=== PATIENT | female | born 1970 | race Caucasian/White ===

== ENCOUNTER → 2018-02-13 | Day surgery (SDC) | payer OTHER | END | disposition home or self-care (01) | LOC: FIMAGING 13:19 | PROVIDERS: ATTEND Internal Medicine | PROC: 02HV33Z Insertion of Infusion Device into Superior Vena Cava, Percutaneous Approach (ICD-10-PCS; principal; 2018-02-13) | DX: M86.60 Other chronic osteomyelitis, unspecified site (principal) | CPT/HCPCS: 36569; 76937; 77001; C1751 ==

== ENCOUNTER 2018-03-30 18:03 | Emergency (ER) | payer OTHER ==
[2018-03-30 18:11] VITALS: BP 106/53
[2018-03-30] MEDS ORDERED: ALTEPLASE 2 MG VIAL IVP PRN (18:46)
--- NOTE | 2018-03-30 18:56 | EDPHY ---
General Time Seen by Provider: 03/30/18 18:26 Narrative: CHIEF COMPLAINT: DVT, told to come to the hospital HISTORY OF PRESENT ILLNESS: Patient presents to emergency department by private vehicle with complaints of a blood clot in her arm where she has a PICC line. She reports that she was told to come here to have it removed. She has no symptoms of any kind associated with this. She was at her primary care physician office and they ordered a routine, screening ultrasound because she has had the PICC in place for 6 weeks. She has had no redness, swelling, pain. No chest pain or shortness of breath or difficulty breathing. Ultrasound was reportedly positive with a DVT in the basilic vein, and she was sent here to have a discontinued. She has the PICC line since February 13 for ongoing antibiotic in registration for mandibular osteomyelitis and chronic Lyme disease. She has no symptoms at this time. No other associated complaints or modifying factors. No anticoagulation use. REVIEW OF SYSTEMS: 10 systems were reviewed and negative with the exception of the elements mentioned in the history of present illness. PCP: Dr. Gonzales PAST MEDICAL HISTORY: Chronic Lyme disease, mandibular osteomyelitis PAST SURGICAL HISTORY: No surgical history SOCIAL HISTORY: Nonsmoker. Lives independently. 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 Well appearing. Head: normocephalic, atraumatic Eyes: Pupils equal and round, no conjunctival pallor or injection ENT, Mouth: Mucous membranes moist Respiratory: Lungs are clear to auscultation Cardiovascular: Regular rate and rhythm. No murmur. Left radial pulses 2+ with good signs of perfusion left upper extremity. Neurological: A&O, nonfocal, normal gait Skin: Warm and dry, no rash. No cellulitis or edema of the left upper extremity. There is a PICC line in place near the left AC with no signs of surrounding infection. Extremities: Nontender, no pedal edema. No evidence of DVT. Psychiatric: Mood and affect normal DIFFERENTIAL DIAGNOSES: Including but not limited to DVT, superficial thrombus, PICC line complication MDM: 6:25 p.m. Nonocclusive DVT on the left basilic vein in which she does have a PICC line placed. This was on a routine screening as she has no symptoms of any kind that upper extremity. I discussed with her primary care nurse practitioner, Nury Jackson. She has called in Eliquis for the patient already for treatment of the basilic vein DVT. She would like the PICC line to be discontinued at this time. I have discussed with the patient and will place a right upper extremity peripheral IV with plan for new PICC line to be placed tomorrow. I discussed this with the on-call interventional radiologist, and he agrees to come in tomorrow for PICC line placement. I do feel that the patient is reliable and that sending her home with peripheral IV is reasonable at this time. The primary care physician agrees with this as well. We discuss Eliquis use. We discussed ED precautions for any chest pain, shortness of breath or painful inspiration. She is comfortable this plan and discharged home stable condition. SUPERVISION: Patient was independently examined, but I discussed the case with my secondary supervising physician Dr. Sherman CONSULTATION: Intervention Radiology by telephone - History Smoking Status: Never smoked - Objective Vital Signs: Initial Vital Signs Temperature (C) 98.4 F 03/30/18 18:07 Heart Rate 74 03/30/18 18:07 Respiratory Rate 18 03/30/18 18:07 Blood Pressure 106/53 L 03/30/18 18:07 O2 Sat (%) 97 03/30/18 18:07 O2 Delivery Mode Room Air Allergies/Adverse Reactions: No Known Allergies Allergy (Unverified 03/30/18 18:06) Home Medications: Medication Instructions Recorded Clindamycin 03/30/18 Doxycycline Inj 03/30/18 Departure - Departure Disposition: Home, Routine, Self-Care Clinical Impression: Acute thrombosis of left basilic vein, Osteomyelitis of mandible Condition: Good Instructions: Deep Vein Thrombosis (ED), Apixaban (By mouth) Additional Instructions: 1. Continue your previous medications in the right upper extremity peripheral IV. 2. You will have a new PICC line placed tomorrow at this hospital. 3. Eliquis as prescribed by her primary care physician for your left upper extremity DVT. 4. Ridge strict ED precautions for any development of any chest pain, shortness of breath, fever or difficulty breathing. Referrals: Kishore Gonzales MD [Medical Doctor] - As per Instructions
== END 2018-03-30 19:38 | disposition home or self-care (01) ==
DX: Z45.2 Encounter for adjustment and management of vascular access device (principal); I82.622 Acute embolism and thrombosis of deep veins of left upper extremity; M27.2 Inflammatory conditions of jaws; A69.20 Lyme disease, unspecified
CPT/HCPCS: 77001; 99282; C1751

== ENCOUNTER → 2018-03-30 | Outpatient (CLI) | payer OTHER | LOC: BMCIMAGING 16:02 | PROVIDERS: ATTEND Nurse Practitioner Family | DX: Z45.2 Encounter for adjustment and management of vascular access device (principal); I82.612 Acute embolism and thrombosis of superficial veins of left upper extremity; A69.20 Lyme disease, unspecified ==

== ENCOUNTER 2018-03-31 16:29 | Emergency (ER) | payer OTHER ==
--- NOTE | 2018-03-31 17:49 | EDPHY ---
H & P Stated Complaint: Bleeding at PICC line site that was placed today Time Seen by Provider: 03/31/18 16:38 HPI/ROS: CHIEF COMPLAINT: Bleeding from PICC line HISTORY OF PRESENT ILLNESS: This is a 47-year-old female who comes to the emergency department shortly after having a PICC line placed in her right arm. She has been receiving antibiotics for mandibular osteomyelitis. She also takes antibiotics for chronic Lyme disease. She had a left sided PICC line but developed a DVT in the left upper extremity. The left PICC line was removed yesterday when the DVT was discovered when she had a right-sided PICC line placed today. She is here because she is having some bleeding from the site of the PICC line in her right upper arm. She has been prescribed Xarelto for her right upper extremity DVT and took her 1st dose about 2 hr ago. REVIEW OF SYSTEMS: A ten system review of systems was performed and is negative with the exception of the items mentioned in the HPI. Past medical history: Chronic Lyme disease, mandibular osteomyelitis Past surgical history: Line placement today Social history: She is here with her . 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 No tobacco use. General Appearance: Alert. Vital signs reviewed. A focused exam was performed. Neck: No lymphadenopathy Lungs: Clear to auscultation Heart: Regular rate and rhythm without murmur. Extremities: Right upper extremity with pressure dressing in place. The dressing was removed. There is some oozing around the site of her recent PICC line insertion and what appears to be a small amount of swelling just distal to the insertion site. She reports tenderness with palpation distal to the PICC line insertion site. No active bleeding. - Personal History LMP (Females 10-55): 1-7 Days Ago Current Tetanus Diphtheria and Acellular Pertussis (TDAP): Yes - Medical/Surgical History Hx Asthma: No Hx Chronic Respiratory Disease: No Hx Diabetes: No Hx Cardiac Disease: No Hx Renal Disease: No Hx Cirrhosis: No Hx Alcoholism: No Hx HIV/AIDS: No Hx Splenectomy or Spleen Trauma: No Other PMH: CHRONIC LYME DISEASE JAW OSTEOMYELITIS - Social History Smoking Status: Never smoked Constitutional: Initial Vital Signs Temperature (C) 36.8 C 03/31/18 16:29 Heart Rate 73 03/31/18 16:29 Respiratory Rate 18 03/31/18 16:29 Blood Pressure 95/56 L 03/31/18 16:29 O2 Sat (%) 95 03/31/18 16:29 O2 Delivery Mode Room Air Allergies/Adverse Reactions: No Known Allergies Allergy (Verified 04/01/18 19:41) Home Medications: Medication Instructions Recorded Clindamycin 03/30/18 Doxycycline Inj 03/30/18 LORazepam [Ativan (*)] 1 mg PO 03/31/18 Rivaroxaban [Xarelto 10mg (*)] 10 mg PO DAILY 03/31/18 Medical Decision Making ED Course/Re-evaluation: Patient on home antibiotics with a DVT in her left upper extremity at the site of previous PICC line insertion. This PICC line was removed yesterday and a new PICC line was inserted this afternoon. She came to the emergency room within 45 min of PICC line insertion concerned about bleeding from the insertion site. She also notes tenderness at the insertion site and she has not had this before. She took a dose, her 1st dose, of Xarelto 2 hr prior to her presentation in the emergency department. I undressed the PICC line and saw that it had been oozing but it did not appear to be actively bleeding. PICC line flushed easily as per the nurse caring for her. Pressure dressing was applied. With pressure the losing resolved. The PICC line was redressed. It is functioning well. She was discharged home. Departure - Departure Disposition: Home, Routine, Self-Care Clinical Impression: Bleeding from PICC line Condition: Good Instructions: How to Flush Your PICC or Midline Catheter (ED) Additional Instructions: You may have some continued oozing from the PICC line site. Apply pressure if this occurs. If you are having trouble flushing the line or if you have any other concerns please be re-evaluated. Referrals: SHELBY MULLER [Other] - As per Instructions Rangel Phelan MD [Medical Doctor] - As per Instructions
[2018-03-31 18:52] VITALS: BP 128/78
== END 2018-03-31 18:53 | disposition home or self-care (01) ==
DX: T82.838A Hemorrhage due to vascular prosthetic devices, implants and grafts, initial encounter (principal)

== ENCOUNTER 2018-04-01 19:38 | Emergency (ER) | payer OTHER ==
--- NOTE | 2018-04-01 20:12 | EDPHY ---
H & P Time Seen by Provider: 04/01/18 19:54 HPI/ROS: CHIEF COMPLAINT: PICC line bleeding HISTORY OF PRESENT ILLNESS: The patient is a 47-year-old female who presents emergency department with bleeding from her PICC line site. Patient states that she had a PICC line in her left upper extremity for approximately 5-6 weeks for treatment of osteomyelitis in Lyme disease. On Monday she was diagnosed with a DVT in her left arm. The PICC line was removed. On Monday the patient had a single dose of Xarelto. On Monday she had a PICC line placed in her right upper extremity. Few hours after having PICC line placement began to ooze and bleed. She was seen in the emergency department at [facility]. A compressive dressing was placed. She was discharged home. Again started to bleed on the way home. She went to [facility] and was seen by a PICC line nurse. Special dressing was placed. The patient noticed some slight oozing from the PICC line today. She was told if blood from the PICC line extended beyond the circular pattern of the dressing she should be seen in the emergency department. She has had no significant bleeding down her arm. Patient is not lightheaded or dizzy. No fevers or chills. REVIEW OF SYSTEMS: 10 systems were reveiwed and are negative with the exception of the elements mentioned in the history of present illness. Past Medical/Surgical History: Includes Lyme disease, jaw osteomyelitis Past surgical history: Includes jaw surgery for osteomyelitis and PICC line placement Social history: The patient is Smoking Status: Never smoked Physical Exam: Vitals noted. 83/63. Heart rate is 79 GENERAL: No acute distress, alert. HEENT: Eyes. Normal. RESPIRATORY: No respiratory distress. CVS: Regular rate and rhythm, no rubs, murmurs, or gallops. ABDOMEN: Benign. SKIN: Normal color, no rash, warm, dry. No pallor. EXTREMITIES: Right upper extremity appears normal. There is no swelling. Right PICC line is in place. There is a small amount of blood around the circular pattern and dressing. This appears consistent was Surgicel. There is no leaking of blood down the arm or under the dressing. No streaking in the arm. Neurovascular intact distally. Patient's left arm appears normal. NEURO/PSYCH: Alert and oriented, normal mood and affect, normal motor sensory exam. Constitutional: Initial Vital Signs Temperature (C) 37.1 C 04/01/18 19:42 Heart Rate 79 04/01/18 19:42 Respiratory Rate 20 04/01/18 19:42 Blood Pressure 83/63 L 04/01/18 19:42 O2 Sat (%) 98 04/01/18 19:42 O2 Delivery Mode Room Air Allergies/Adverse Reactions: No Known Allergies Allergy (Verified 04/01/18 19:41) Home Medications: Medication Instructions Recorded Clindamycin 03/30/18 Doxycycline Inj 03/30/18 LORazepam [Ativan (*)] 1 mg PO 03/31/18 Rivaroxaban [Xarelto 10mg (*)] 10 mg PO DAILY 03/31/18 Medical Decision Making ED Course/Re-evaluation: In the emergency department discussed the plan with the patient. Laboratory studies were obtained. Patient states that she had a single dose of Xarelto. Although I am unable to assess the level of anticoagulation from Xarelto coags will be checked to ensure there is not another reason for her ongoing bleeding. On recheck the patient is doing well. She has no complaints lightheadedness or dizziness. There is no active bleeding from her PICC line. PICC line dressing site was removed. There is no active bleeding. A new dressing was placed. Patient's coags were normal. The patient's hematocrit was low at 31. Previous hematocrit was 39. I instructed the patient she needs close follow-up to recheck her blood levels with her primary care physician. Patient was given PICC line care instructions. Differential Diagnosis: My differential includes but is not limited to PICC line malfunction, PICC line bleeding, DVT, arterial occlusion, coagulopathy - Data Points Laboratory Results: Laboratory Results 04/01/18 20:20 04/01/18 20:20 04/01/18 04/01/18 04/01/18 20:20 20:20 20:20 WBC 5.50 10^3/uL 10^3/uL (3.80-9.50) RBC 3.52 10^6/uL L 10^6/uL (4.18-5.33) Hgb 10.6 g/dL L g/dL (12.6-16.3) Hct 31.9 % L % (38.0-47.0) MCV 90.6 fL fL (81.5-99.8) MCH 30.1 pg pg (27.9-34.1) MCHC 33.2 g/dL g/dL (32.4-36.7) RDW 16.0 % H % (11.5-15.2) Plt Count 253 10^3/uL 10^3/uL (150-400) MPV 9.9 fL fL (8.7-11.7) Neut % (Auto) 51.4 % % (39.3-74.2) Lymph % (Auto) 34.9 % % (15.0-45.0) Eagle % (Auto) 9.8 % % (4.5-13.0) Eos % (Auto) 2.4 % % (0.6-7.6) Baso % (Auto) 1.3 % % (0.3-1.7) Nucleat RBC Rel Count 0.0 % % (0.0-0.2) Absolute Neuts (auto) 2.83 10^3/uL 10^3/uL (1.70-6.50) Absolute Lymphs (auto) 1.92 10^3/uL 10^3/uL (1.00-3.00) Absolute Monos (auto) 0.54 10^3/uL 10^3/uL (0.30-0.80) Absolute Eos (auto) 0.13 10^3/uL 10^3/uL (0.03-0.40) Absolute Basos (auto) 0.07 10^3/uL 10^3/uL (0.02-0.10) Absolute Nucleated RBC 0.00 10^3/uL 10^3/uL (0-0.01) Immature Gran % 0.2 % % (0.0-1.1) Immature Gran # 0.01 10^3/uL 10^3/uL (0.00-0.10) PT 13.8 SEC SEC (12.0-15.0) INR 1.04 (0.83-1.16) APTT 29.5 SEC SEC (23.0-38.0) Sodium 138 mEq/L mEq/L (135-145) Potassium 4.3 mEq/L mEq/L (3.5-5.2) Chloride 106 mEq/L mEq/L (97-110) Carbon Dioxide 24 mEq/l mEq/l (22-31) Anion Gap 8 mEq/L mEq/L (6-14) BUN 9 mg/dL mg/dL (7-23) Creatinine 0.7 mg/dL mg/dL (0.6-1.0) Estimated GFR > 60 Glucose 97 mg/dL mg/dL (70-100) Calcium 9.1 mg/dL mg/dL (8.5-10.4) Departure - Departure Disposition: Home, Routine, Self-Care Clinical Impression: Bleeding from PICC line Qualifiers: Encounter type: initial encounter Qualified Code(s): T82.838A - Hemorrhage due to vascular prosthetic devices, implants and grafts, initial encounter Anemia Qualifiers: Anemia type: unspecified type Qualified Code(s): D64.9 - Anemia, unspecified Condition: Good Instructions: How to Flush Your PICC or Midline Catheter (ED), Anemia (ED) Additional Instructions: Return with increasing bleeding, redness, pain or any other concerns. You're coagulation studies were normal. You were noted to be anemic in the emergency department. You need to have your blood Re checked by your primary care physician in 1-2 weeks. The you been given contact information for Dr. Partida. He has a primary care physician on-call. He is available if you are unable to get in to see your primary care physician. Referrals: Kishore Partida MD [Medical Doctor] - 5-7 days, if not improved
[2018-04-01 20:38] LABS: PLATELET COUNT 253 10^3/uL (150-400)
[2018-04-01 20:51] LABS: INR 1.04 (0.83-1.16); PROTIME(PATIENT) 13.8 SEC (12.0-15.0)
[2018-04-01 21:04] VITALS: BP 90/65
== END 2018-04-01 21:12 | disposition home or self-care (01) ==
DX: T82.838A Hemorrhage due to vascular prosthetic devices, implants and grafts, initial encounter (principal); M86.9 Osteomyelitis, unspecified; A69.20 Lyme disease, unspecified; D64.9 Anemia, unspecified; Y82.9 Unspecified medical devices associated with adverse incidents; Y84.9 Medical procedure, unspecified as the cause of abnormal reaction of the patient, or of later complication, without mention of misadventure at the time of the procedure; Z79.01 Long term (current) use of anticoagulants